=== PATIENT | female | born 1935 | race African-American/Black ===

== ENCOUNTER 2024-04-23 07:21 | Day surgery (SDC) | payer OTHER ==
[2024-04-16 18:22] VITALS: BMI 37.6
[2024-04-23 07:23] VITALS: RESP 16
[2024-04-23] MEDS: LIDOCAINE HCL 1% PRESERVATIVE FREE - 30ML VIAL IJ ONE ×2 (09:20)
[2024-04-23 09:47] VITALS: BP 141/69; PULSE 66; TEMP 97.4
== END 2024-04-23 10:54 | disposition home or self-care (01) ==
LOC: JASU-SURG 07:21
PROVIDERS: ATTEND Pain Medicine Pain Medicine
PROC: 01HY3MZ Insertion of Neurostimulator Lead into Peripheral Nerve, Percutaneous Approach (ICD-10-PCS; principal; 2024-04-23 08:30)
DX: G89.4 Chronic pain syndrome (principal); M25.562 Pain in left knee
CPT/HCPCS: 64555; C1778

== ENCOUNTER 2024-05-21 04:25 | Day surgery (SDC) | payer OTHER ==
[2024-05-21] MEDS ORDERED: LIDOCAINE HCL/PF 1% SDV 5ML VIAL ONE (07:17)
[2024-05-21 08:49] VITALS: BMI 37.6
[2024-05-21 11:17] VITALS: BP 177/49; PULSE 62; RESP 16; TEMP 98.3
== END 2024-05-21 11:33 | disposition home or self-care (01) ==
LOC: JASU-SURG 04:25
PROVIDERS: ATTEND Pain Medicine Pain Medicine
PROC: 01HY3MZ Insertion of Neurostimulator Lead into Peripheral Nerve, Percutaneous Approach (ICD-10-PCS; principal; 2024-05-21 10:23)
DX: G89.4 Chronic pain syndrome (principal); M25.561 Pain in right knee
CPT/HCPCS: 64555; C1778